=== PATIENT | female | born 2000 | race Caucasian/White ===

== ENCOUNTER 2021-12-30 15:55 | Emergency (ER) | payer OTHER ==
[2021-12-30 16:11] VITALS: BP 124/72; PULSE 71; TEMP 98.1; BMI 24.7
== END 2021-12-30 17:22 | disposition home or self-care (01) ==
LOC: JERFT 15:55
DX: T16.2XXA Foreign body in left ear, initial encounter (principal)
CPT/HCPCS: 99281-25